=== PATIENT | male | born 1960 | race Caucasian/White ===

== ENCOUNTER 2023-07-27 18:07 | Emergency (ER) | payer BC, MEDICARE ==
[2023-07-27 18:11] VITALS: RESP 18
--- NOTE | 2023-07-27 18:50 | XR ---
EXAMINATION TYPE: XR shoulder complete LT DATE OF EXAM: 07/27/2023 6:34 PM CLINICAL INDICATION:Male, 62 years old with history of fall/pain; PHH COMPARISON: None TECHNIQUE: The left shoulder was examined in AP, internally rotated and scapular Y projections. FINDINGS: No evidence of acute osseous pathology, joint dislocation, or soft tissue swelling. The remaining por tions of the visualized chest are unremarkable. Degeneration of the glenoid and acromial clavicular j oint. Postsurgical changes to the cervical spine with hardware appearing intact. IMPRESSION: No acute osseous pathology. Mild right shoulder osteoarthrosis
--- NOTE | 2023-07-27 19:41 | ED ---
Upper Extremity HPI - General Chief Complaint: Extremity Injury, Upper Stated Complaint: L SHOULDER Time Seen by Provider: 07/27/23 18:55 Source: patient, RN notes reviewed, old records reviewed Mode of arrival: ambulatory Limitations: no limitations - History of Present Illness Initial Comments: This is a 62-year-old male to the emergency department for evaluation patient had a fall with a significant fall and pain on his left shoulder. Significant fall shoulder was not outstretched. He did tuck his left shoulder that is had persistent pain in that left shoulder since the fall. Decreased range of motion secondary to severe pain. No other traumatic injury noted no headache neck pain back pain. MD Complaint: Injury to:: left, shoulder -: days(s) Other Extremity Injury: Shoulder: Left Other Injuries: none Handedness: right Place: home Severity scale (1-10): 10 Improves With: movement Worsens With: none Context: fall, direct blow Associated Symptoms: denies other symptoms, heard/felt popping sensat Treatments Prior to Arrival: other (0) - Related Data Home Medications Medication Instructions Recorded Confirmed Omeprazole [PriLOSEC] 40 mg PO DAILY PRN 01/14/15 01/18/15 Simvastatin [Zocor] 40 mg PO DAILY 01/14/15 01/18/15 raNITIdine HCL [Zantac] 150 mg PO DIRECTED PRN 01/14/15 01/18/15 Previous Rx's Medication Instructions Recorded HYDROcodone/APAP 7.5-325MG [[place] 1 each PO Q4H PRN #60 tab 01/18/15 7.5] Allergies Allergy/AdvReac Type Severity Reaction Status Date / Time venom-honey bee Allergy Swelling Verified 07/27/23 18:11 [bee venom (honey bee)] Review of Systems ROS Statement: Those systems with pertinent positive or pertinent negative responses have been documented in the HPI. ROS Other: All systems not noted in ROS Statement are negative. Past Medical History Past Medical History: GERD/Reflux, Hyperlipidemia Additional Past Medical History / Comment(s): HIATAL HERNIA History of Any Multi-Drug Resistant Organisms: None Reported Past Surgical History: Appendectomy, Back Surgery, Orthopedic Surgery, Tonsillectomy Additional Past Surgical History / Comment(s): PREVIOUS HIATAL HERNIA SX, BACK FUSION, RT SHOULDER SX WITH SCREW Past Anesthesia/Blood Transfusion Reactions: No Reported Reaction Past Psychological History: No Psychological Hx Reported Past Alcohol Use History: Occasional Past Drug Use History: None Reported - Past Family History Brother(s) Family Medical History: Cancer Additional Family Medical History / Comment(s): BLADDER General Exam Limitations: no limitations General appearance: alert, in no apparent distress Head exam: Present: atraumatic, normocephalic, normal inspection Eye exam: Present: normal appearance, PERRL, EOMI. Absent: scleral icterus, conjunctival injection, periorbital swelling ENT exam: Present: normal exam, mucous membranes moist Neck exam: Present: normal inspection. Absent: tenderness, meningismus, lymphadenopathy Respiratory exam: Present: normal lung sounds bilaterally. Absent: respiratory distress, wheezes, rales, rhonchi, stridor Cardiovascular Exam: Present: regular rate, normal rhythm, normal heart sounds. Absent: systolic murmur, diastolic murmur, rubs, gallop, clicks GI/Abdominal exam: Present: soft, normal bowel sounds. Absent: distended, tenderness, guarding, rebound, rigid Extremities exam: Present: normal inspection, full ROM, normal capillary refill. Absent: tenderness, pedal edema, joint swelling, calf tenderness Back exam: Present: normal inspection Neurological exam: Present: alert, oriented X3, CN II-XII intact Psychiatric exam: Present: normal affect, normal mood Skin exam: Present: warm, dry, intact, normal color. Absent: rash Course Vital Signs 07/27/23 07/27/23 18:08 20:47 Temperature 98.3 F 98.1 F Pulse Rate 102 H 96 Respiratory 18 18 Rate Blood Pressure 140/87 128/86 O2 Sat by Pulse 94 L 96 Oximetry - Reevaluation(s) Reevaluation #1: 07/27/23 19:43 Medical records reviewed Reevaluation #2: 07/27/23 19:43 Patient symptoms unchanged Reevaluation #3: 07/27/23 19:44 patient informed results questions answered Reevaluation #4: 07/27/23 19:44 Was pt. sent in by a medical professional or institution (, PA, APPLICATION INFRASTRUCTURE ENGINEER, urgent care, hospital, or retirement...) When possible be specific @ -no Did you speak to anyone other than the patient for history (EMS, parent, family, police, friend...)? What history was obtained from this source @ -no Did you review nursing and triage notes (agree or disagree)? Why? @ -agree Are old charts reviewed (outside hosp., previous admission, EMS record, old EKG, old radiological studies, urgent care reports/EKG's, retirement records)? Report findings @ -yes Differential Diagnosis (chest pain, altered mental status, abdominal pain women, abdominal pain men, vaginal bleeding, weakness, fever, dyspnea, syncope, headache, dizziness, GI bleed, back pain, seizure, CVA, palpatations, mental health, musculoskeletal)? @ -prior EKG interpreted by me (3pts min.). @ -no X-rays interpreted by me (1pt min.). @ -yes CT interpreted by me (1pt min.). @ -no U/S interpreted by me (1pt. min.). @ -no What testing was considered but not performed or refused? (CT, X-rays, U/S, labs)? Why? @ -none What meds were considered but not given or refused? Why? @ -none Did you discuss the management of the patient with other professionals (professionals i.e. , PA, APPLICATION INFRASTRUCTURE ENGINEER, lab, RT, psych nurse, social scientist, product development chemist, teacher, business enterprise officer, immigration case worker)? Give summary @ -no Was smoking cessation discussed for >3mins.? @ -no Was critical care preformed (if so, how long)? @ -no Were there social determinants of health that impacted care today? How? (Homelessness, low income, unemployed, alcoholism, drug addiction, transportation, low edu. Level, literacy, decrease access to med. care, nursing home, rehab)? @ -none Was there de-escalation of care discussed even if they declined (Discuss DNR or withdrawal of care, Hospice)? DNR status @ -no What co-morbidities impacted this encounter? (DM, HTN, Smoking, COPD, CAD, Cancer, CVA, ARF, Chemo, Hep., AIDS, mental health diagnosis, sleep apnea, morbid obesity)? @ -none Was patient admitted / discharged? Hospital course, mention meds given and route, prescriptions, significant lab abnormalities, going to OR and other pertinent info. @ - 62 male to the emergency department for evaluation severe left shoulder pain significant left shoulder sprain likely before meals joint separation x-ray negative for traumatic injury, patient will follow-up with orthopedics on outpatient basis. Patient does have pain medications at home and now requiring anything for pain currently Discharge Undiagnosed new problem with uncertain prognosis? @ -no Drug Therapy requiring intensive monitoring for toxicity (Heparin, Nitro, Insulin, Cardizem)? @ -no Were any procedures done? @ -no Diagnosis/symptom? @ -Left shoulder sprain Acute, or Chronic, or Acute on Chronic? @ -Acute Uncomplicated (without systemic symptoms) or Complicated (systemic symptoms)? @ -Complicated Side effects of treatment? @ -no Exacerbation, Progression, or Severe Exacerbation? @ -exacerbation Poses a threat to life or bodily function? How? (Chest pain, [place], SD, pneumonia, PE, COPD, DKA, ARF, appy, cholecystitis, CVA, Diverticulitis, Homicidal, Suicidal, threat to staff... and all critical care pts) @ -no Medical Decision Making - Medical Decision Making 62 male to the emergency department for evaluation severe left shoulder pain significant left shoulder sprain likely before meals joint separation x-ray negative for traumatic injury, patient will follow-up with orthopedics on outpatient basis. Patient does have pain medications at home and now requiring anything for pain currently - Radiology Data Radiology results: report reviewed (X-ray left shoulder is negative for acute disease, interpreted by me), image reviewed Disposition Clinical Impression: Strain of shoulder, Left shoulder pain Disposition: HOME SELF-CARE Condition: Good Instructions (If sedation given, give patient instructions): Shoulder Sprain (ED) Is patient prescribed a controlled substance at d/c from ED?: No Referrals: Benigno Decker DO [Doctor of Osteopathic Medicine] - 1-2 days Time of Disposition: 19:40
[2023-07-27 20:49] VITALS: BP 128/86; PULSE 96; TEMP 98.1
== END 2023-07-27 20:49 | disposition home or self-care (01) ==
LOC: EC 18:07
DX: S46.912A Strain of unspecified muscle, fascia and tendon at shoulder and upper arm level, left arm, initial encounter (principal); S43.402A Unspecified sprain of left shoulder joint, initial encounter; E78.5 Hyperlipidemia, unspecified; K21.9 Gastro-esophageal reflux disease without esophagitis; Z79.899 Other long term (current) drug therapy; Z91.030 Bee allergy status; Z90.49 Acquired absence of other specified parts of digestive tract; W19.XXXA Unspecified fall, initial encounter; Y92.009 Unspecified place in unspecified non-institutional (private) residence as the place of occurrence of the external cause
CPT/HCPCS: 99284

== ENCOUNTER 2023-10-01 07:48 | Day surgery (SDC) | payer BC, MEDICARE ==
[2023-09-28 11:02] VITALS: BMI 30.5
--- NOTE | 2023-09-30 08:16 | P.HPOR ---
History of Present Illness H&P Date: 09/30/23 Chief Complaint: Left shoulder pain The patient is a 62-year-old [id number] retired male who presents with left shoulder pain and weakness after an injury 07/27/2023. He slipped and fell on wet grass injuring his shoulder. He noted diffuse pain with any movement. He is having night symptoms. He has difficult time trying to raise his arm over his head. He has been utilizing a sling. He notes he's had 2 previous major injuries to left shoulder in the past for which he was treated with therapy. Review of Systems Negative except as in HPI Past Medical History Past Medical History: GERD/Reflux, Hyperlipidemia, Osteoarthritis (OA) Additional Past Medical History / Comment(s): HIATAL HERNIA History of Any Multi-Drug Resistant Organisms: None Reported Past Surgical History: Appendectomy, Back Surgery, Orthopedic Surgery, Tonsillectomy Additional Past Surgical History / Comment(s): PREVIOUS HIATAL HERNIA SX, BACK FUSION, RT SHOULDER SX WITH SCREW, BILAT CATARACTS REMOVED WITH LENS IMPLANTS, COLONOSCOPY Past Anesthesia/Blood Transfusion Reactions: No Reported Reaction Smoking Status: Former smoker - Past Family History Brother(s) Family Medical History: Cancer Additional Family Medical History / Comment(s): 2 BROTHERS WITH CANCER Medications and Allergies Home Medications Medication Instructions Recorded Confirmed Type Pantoprazole [Protonix] 40 mg PO BID 09/28/23 09/28/23 History Pregabalin [Lyrica] 75 mg PO BID 09/28/23 09/28/23 History methocarbamoL [Robaxin-750] 750 mg PO HS 09/28/23 09/28/23 History oxyCODONE-APAP 10-325MG [Percocet 1 tab PO Q6HR PRN 09/28/23 09/28/23 History 10-325 mg] Allergies Allergy/AdvReac Type Severity Reaction Status Date / Time venom-honey bee Allergy Swelling Verified 09/28/23 10:42 [bee venom (honey bee)] Physical Examination - Shoulder left Appearance: effusion Tenderness with palpation: anterior, bicipital groove Pain: with abduction, with forward flexion ROM: forward flexion: 20 degrees (Actively, 110 passively) ROM: external rotation: 10 degrees Crepitus with motion: Yes Strength: abduction: 3/5 Strength: external rotation: 3/5 Tests: internal impingement tests: positive, external impingment tests: positive Results The patient is a well-developed well-nourished male approximately 5 foot 7, 195 pounds of endomorphic habitus. HEENT exam is nonfocal, neck is supple. He is tender diffusely about the left anterior shoulder. He has moderate crepitus. Wagoner, Neer sign, and speed tests are positive. His distal neurovascular exam otherwise appears intact in the left upper extremity. - Diagnostic results Shoulder MRI: image reviewed (MRI of the left shoulder shows a massive full- thickness rotator cuff tear involving the supraspinatus and infraspinatus. There is retraction. Involvement of the subscapularis is also noted. Proximal biceps rupture is noted. No significant fatty atrophy is present.) Assessment and Plan Assessment: Probable acute on chronic left massive rotator cuff tear Plan: I talked to the patient at length regarding his condition along with treatment options. At this point is quite symptomatic and limited having both pain and weakness after this acute injury. After a thorough discussion he opted to proceed with surgery. Surgical options including attempted arthroscopic evaluation with rotator cuff repair versus reverse total shoulder arthroplasty were discussed. We will plan to proceed with arthroscopic evaluation of his left shoulder with possible rotator cuff repair versus debridement. We will likely perform that as an outpatient procedure. Risks and benefits were discussed at length in layman's terms.
[~2023-10-01 07:48] MED LIST: HYDROmorphone 0.5 MG/0.5 ML SYRINGE IVP PRN; LACTATED RINGERS 1,000 ML IV SCH; LIDOCAINE 1% (10MG/ML) FOR IV START INTRADERMA PRN; MIDAZOLAM 2 MG/2 ML VIAL IV PRN; ONDANSETRON 4 MG/2 ML VIAL IVP ONE
[2023-10-01] MEDS: DEXAMETHASONE SOD PHOSPHATE 4 MG/ML 1 ML VIAL IV ONE ×2 (08:38→08:39)
[2023-10-01 08:43] VITALS: TEMP 97.8
[2023-10-01] MEDS ORDERED: MIDAZOLAM 2 MG/2 ML VIAL IVP ONE (08:46)
[2023-10-01] MEDS ORDERED: SUCCINYLCHOLINE CHLORIDE 200 MG/10 ML VIAL IV ONE (10:01)
[2023-10-01] MEDS ORDERED: MIDAZOLAM 2 MG/2 ML VIAL ONE (10:01)
[2023-10-01] MEDS ORDERED: PHENYLEPHRINE-0.9% NACL SYG 1,000 MCG/10 ML SYRINGE ONE (10:01)
[2023-10-01] MEDS ORDERED: PROPOFOL 10 MG/ML 20 ML VIAL IV ONE (10:01)
[2023-10-01] MEDS ORDERED: ePHEDrine 50 MG/ML 1 ML VIAL ONE (10:01)
[2023-10-01] MEDS ORDERED: DEXAMETHASONE SOD PHOSPHATE 4 MG/ML 1 ML VIAL ONE (10:01)
[2023-10-01] MEDS ORDERED: ROPIVACAINE 5 MG/ML 30 ML VIAL ONE (10:01)
[2023-10-01] MEDS ORDERED: LIDOCAINE 1% INJ 10MG/ML (20 ML MDV) ONE (10:01)
[2023-10-01] MEDS ORDERED: PHENYLEPHRINE 10 MG/ML VIAL ONE (10:01)
[2023-10-01] MEDS ORDERED: EPINEPHrine (PF) 1 ML in SODIUM CHLORIDE 0.9% IRRIGATIO 3,000 ML IRRIGATION ONE ×8 (10:33)
[2023-10-01] MEDS ORDERED: LACTATED RINGERS 1,000 ML IV ONE (11:48)
--- NOTE | 2023-10-01 12:19 | P.OP ---
Date of Procedure: 10/01/23 Preoperative Diagnosis: Acute on chronic left rotator cuff tear Postoperative Diagnosis: Massive5 cm retracted rotator cuff tear, proximal biceps rupture Procedure(s) Performed: Left shoulder arthroscopic subacromial decompression/rotator cuff repair/biceps debridement Implants: Arthrex 4.75 mm swivel lock anchor 2, 5.5 mm swivel lock anchor 2 Anesthesia: BELLE, regional Surgeon: William Aguilar Estimated Blood Loss (ml): 10 Pathology: none sent Condition: stable Disposition: PACU Indications for Procedure: The patient is a 62-year-old male who presents with left shoulder pain and weakness that has progressed after a recent injury. He notes previous injuries to the same shoulder. He tried conservative measures without much relief. A discussion of the risks and benefits of operative intervention versus continued conservative measures was made with patient. He opted to proceed with surgery. Operative options to include arthroscopic evaluation with attempted rotator cuff repair versus reversed total shoulder arthroplasty were discussed. He opted to proceed with arthroscopy. Specific risks of surgery to include infection, neurovascular injury, development of blood clots, possible tendon rerupture, possible need for subsequent procedures was discussed. Informed consent was obtained. Operative Findings: As below Description of Procedure: The patient was brought to the operating room, and after induction of general anesthesia was placed in a beachchair position. A preoperative interscalene block was placed for postoperative analgesia. I examined the left shoulder. There was no gross block to passive motion or gross glenohumeral instability. The left upper extremity was prepped and draped in normal fashion. The bony outlines the acromion, distal clavicle, and coracoid process were outlined with a skin marker. The glenohumeral joint was inflated with 50 mL of saline utilizing a spinal needle from posterior approach. A posterior portal was made through a 5 mm skin incision 1 cm medial and inferior to the posterior lateral border time. A blunt trocar was used to easily into the joint. Diagnostic arthroscopy was performed. An anterior portal was made just lateral to the coracoid process entering the joint above the subscapularis tendon. The subscapularis tendon appeared to be intact. Anterior labrum was intact. The inferior recess was inspected. The posterior labrum was intact. The biceps was ruptured off the superior labrum and the remnant was debrided back to the superior labrum with shaver. On inspection the rotator cuff, a massive retracted tear involving the supraspinatus and infraspinatus and portion of teres minor was noted. The arthroscope was placed into the subacromial space. A lateral portal was made 2 centimeters inferior to the anterior lateral border of the acromion. The rotator cuff was then inspected. A portion of the supraspinatus and infraspinatus was retrievable and able to be brought back to the greater tuberosity. A traction suture was placed. The soft tissue on the undersurface of the acromion was debrided with a motorized shaver and electrocautery clearly defining the anterior medial and lateral borders as well as the distal clavicle. An anterior inferior acromioplasty was performed with a motorized ashu starting anterolateral, then extending this posteriorly, then extending this medially. I converted to a flat acromion and this was verified in the posterior and lateral viewing portals. The greater tuberosity was lightly decorticating with a shaver down to a bleeding bony surface. An access ory superior lateral portal was made just off the lateral edge of the acromion for anchor placement. 2 anchors were then placed just off the articular surface with the appropriate starting awl. 4.75 mm anchors preloaded with #2 fiber tape were placed. Good purchase was obtained. These fiber tapes were then passed the rotator cuff with a scorpion suture passer. A lateral row was created crisscrossing these tapes. 5.5 mm swivel lock anchors x 2 were placed laterally. Good purchase was obtained. Final arthroscopic view showed adequate compression at the footprint of the partial repair. The remaining rotator cuff was retracted and scarred with insufficient tissue. The arthroscope was then removed. The portals were closed with simple 3-0 nylon sutures. A sterile dressing was applied in addition to an abductor brace. The patient was then awoken from general anesthesia and transferred to recovery room in good condition. Blood loss was estimated at 10 mL. No complications were incurred. Sponge and needle counts were correct in the case.
[2023-10-01 13:36] VITALS: PULSE 98
[2023-10-01 14:02] VITALS: BP 151/95; RESP 20
--- NOTE | 2023-10-02 11:24 | P.ANPRN ---
Procedure Note - Anesthesia - Nerve Block Performed Left Interscalene Single Time Out Performed: Yes Date of Procedure: 10/01/23 Procedure Start Time: 08:45 Procedure Stop Time: 08:51 Location of Patient: PreOp Indication: Acute Post-Operative Pain, Requested by Surgeon Sedation Type: Sedate with meaningful contact maintained Preparation: Sterile Prep Position: Supine Needle Types: Pajunk Needle Gauge: 21 Ultrasound used to visualize needle placement: Yes Ultrasound used to observe medication spread: Yes Blood Aspirated: No Pain Paresthesia on Injection Noted: No Resistance on Injection: Normal Image Stored and Saved: Yes Events: Uneventful and Well Tolerated (Ropivacaine 0.5% 20 mL plus dexamethasone 4 mg)
== END 2023-10-01 14:03 | disposition home or self-care (01) ==
LOC: OR 07:48
PROVIDERS: ATTEND Orthopaedic Surgery
DX: M75.102 Unspecified rotator cuff tear or rupture of left shoulder, not specified as traumatic (principal); E78.5 Hyperlipidemia, unspecified; F12.90 Cannabis use, unspecified, uncomplicated; M19.90 Unspecified osteoarthritis, unspecified site; K44.9 Diaphragmatic hernia without obstruction or gangrene; K21.9 Gastro-esophageal reflux disease without esophagitis; Z80.9 Family history of malignant neoplasm, unspecified; Z79.899 Other long term (current) drug therapy; Z90.49 Acquired absence of other specified parts of digestive tract; Z87.891 Personal history of nicotine dependence; Z91.030 Bee allergy status; W01.0XXA Fall on same level from slipping, tripping and stumbling without subsequent striking against object, initial encounter
CPT/HCPCS: 29827; 29826; 64415; C1713 ×3; C1894; J2250; J0330; J1100; J0690; J2405; J0171; J2001; J2795; J2704; J2371 ×2